=== PATIENT | female | born 1955 | race Caucasian/White ===

== ENCOUNTER → 2024-10-02 10:55 | Outpatient (REF) | payer OTHER, SELFPAY ==
[2024-10-03 19:57] LABS: Rubella Positive
[2024-10-04 16:01] LABS: Quantiferon Mitogen minus NIL 9.99 IU/mL; Quantiferon NIL 0.01 IU/mL; Quantiferon Plus TB1 minus NIL 0.02 IU/mL (<=0.34); Quantiferon TB Gold Plus Negative (Negative)
== END ==
LOC: OHS 10:55
PROVIDERS: ATTENDING PHYSICIAN Nurse Practitioner Family
DX: Z23 Encounter for immunization (principal)
CPT/HCPCS: 36415; 86480; 86735; 86762; 86765; 86787

== ENCOUNTER → 2025-01-07 07:12 | Outpatient (REF) | payer BC, SELFPAY ==
[2025-01-07 08:51] LABS: ALT (SGPT) 122 U/L (0-35); AST (SGOT) 59 U/L (14-36); Albumin 4.8 g/dl (3.5-5.0); Alkaline Phosphatase 101 U/L (38-126); Blood Urea Nitrogen 13 mg/dl (7-17); Calcium 9.6 mg/dl (8.4-10.2); Carbon Dioxide 25 mmol/L (22-30); Chloride 106 mmol/L (98-107); Glucose 96 mg/dl (70-99); HDL Cholesterol 74 mg/dl; LDL Cholesterol, Calculated 80 mg/dl; Sodium 140 mmol/L (135-145); Total Bilirubin 0.8 mg/dl (0.2-1.3); Total Cholesterol 172 mg/dl (50-199); Total Protein 7.2 g/dl (6.3-8.2); Triglyceride 94 mg/dl (10-149); Very Low Density Lipoprotein 18 mg/dl (0-30); eGFR > 60.00
== END ==
LOC: REG 07:12
PROVIDERS: ATTENDING PHYSICIAN Physician Assistant
DX: E78.00 Pure hypercholesterolemia, unspecified (principal); E03.9 Hypothyroidism, unspecified; R74.8 Abnormal levels of other serum enzymes
CPT/HCPCS: 36415; 80053; 80061

== ENCOUNTER → 2025-01-15 08:03 | Outpatient (REF) | payer BC, SELFPAY ==
[2025-01-15 10:43] LABS: ALT (SGPT) 100 U/L (0-35); AST (SGOT) 46 U/L (14-36); Albumin 4.8 g/dl (3.5-5.0); Alkaline Phosphatase 87 U/L (38-126); Blood Urea Nitrogen 15 mg/dl (7-17); Calcium 9.9 mg/dl (8.4-10.2); Carbon Dioxide 23 mmol/L (22-30); Chloride 104 mmol/L (98-107); Glucose 81 mg/dl (70-99); Potassium 4.3 mmol/L (3.5-5.1); Sodium 138 mmol/L (135-145); Total Bilirubin 0.8 mg/dl (0.2-1.3); Total Protein 7.4 g/dl (6.3-8.2); eGFR > 60.00
== END ==
LOC: REG 08:03
PROVIDERS: ATTENDING PHYSICIAN Physician Assistant
DX: R74.8 Abnormal levels of other serum enzymes (principal)
CPT/HCPCS: 36415; 80053

== ENCOUNTER → 2025-01-27 06:51 | Outpatient (REF) | payer BC, SELFPAY | LOC: RAD 06:51 | PROVIDERS: ATTENDING PHYSICIAN Physician Assistant; FAMILY PHYSICIAN Family Medicine | DX: R79.89 Other specified abnormal findings of blood chemistry (principal) | CPT/HCPCS: 76700 ==

== ENCOUNTER → 2025-04-16 10:00 | Outpatient (REF) | payer BC, SELFPAY ==
[2025-04-16 11:57] LABS: ALT (SGPT) 34 U/L (0-35); AST (SGOT) 27 U/L (14-36); Albumin 4.7 g/dl (3.5-5.0); Alkaline Phosphatase 90 U/L (38-126); Blood Urea Nitrogen 10 mg/dl (7-17); Calcium 9.9 mg/dl (8.4-10.2); Carbon Dioxide 29 mmol/L (22-30); Chloride 108 mmol/L (98-107); Glucose 88 mg/dl (70-99); Potassium 4.1 mmol/L (3.5-5.1); Sodium 144 mmol/L (135-145); Total Bilirubin 0.4 mg/dl (0.2-1.3); Total Protein 7.6 g/dl (6.3-8.2); eGFR > 60.00
[2025-04-18 09:33] LABS: HDL Cholesterol 63 mg/dl; LDL Cholesterol, Calculated 179 mg/dl; Total Cholesterol 292 mg/dl (50-199); Triglyceride 252 mg/dl (10-149); Very Low Density Lipoprotein 50 mg/dl (0-30)
== END ==
LOC: REG 10:00
PROVIDERS: ATTENDING PHYSICIAN Physician Assistant
DX: K76.0 Fatty (change of) liver, not elsewhere classified (principal); R79.89 Other specified abnormal findings of blood chemistry
CPT/HCPCS: 36415; 80053; 80061

== ENCOUNTER → 2025-05-01 16:35 | Outpatient (REF) | payer BC, SELFPAY | LOC: RAD 16:35 | PROVIDERS: ATTENDING PHYSICIAN Physician Assistant | DX: R31.9 Hematuria, unspecified (principal); R39.15 Urgency of urination; Z87.442 Personal history of urinary calculi | CPT/HCPCS: 74176 ==

== ENCOUNTER → 2025-06-20 08:01 | Outpatient (REF) | payer BC, SELFPAY | LOC: WDC 08:01 | PROVIDERS: ATTENDING PHYSICIAN Physician Assistant | DX: Z12.31 Encounter for screening mammogram for malignant neoplasm of breast (principal) | CPT/HCPCS: 77063; 77067 ==

== ENCOUNTER → 2025-07-02 13:30 | Outpatient (REF) | payer BC, SELFPAY ==
[2025-07-02 17:32] LABS: Urine Character Clear (Clear)
[2025-07-02 17:45] LABS: Urine Squamous Cell 0-2 /LPF (Few); Urine White Cell 0-2 /HPF (0-5)
== END ==
LOC: HWRAD 13:30
PROVIDERS: ATTENDING PHYSICIAN Urology; FAMILY PHYSICIAN Family Medicine
DX: N20.0 Calculus of kidney (principal); R35.0 Frequency of micturition
CPT/HCPCS: 74176; 81003; 81015; 87086

== ENCOUNTER 2025-07-04 06:14 | Day surgery (SDC) | payer BC, SELFPAY ==
[2025-07-04] VITALS (8 sets, daily range): BP systolic 98–147; BP diastolic 73–85; BMI 25.8
[2025-07-04] MEDS: NORMOSOL-R/PLASMALYTE-A 1000 IV (12:45)
== END 2025-07-04 15:38 | disposition home or self-care (01) ==
LOC: SDS 06:14
PROVIDERS: ATTENDING PHYSICIAN Urology
DX: N20.1 Calculus of ureter (principal)
CPT/HCPCS: 52353; 74018; 76000; 82365; 93005